=== PATIENT | male | born 1990 | race Caucasian/White ===

== ENCOUNTER 2017-01-13 17:45 | Emergency (ER) | payer OTHER ==
[~2017-01-13] VITALS: Ht 177.8 cm; Wt 98.0 kg
[2017-01-13 17:46] VITALS: BP 133/65
[2017-01-13] MEDS ORDERED: ROBA500T PO (18:15)
[2017-01-13] MEDS ORDERED: IBUP80TA PO (18:15)
[2017-01-13] MEDS ORDERED: IBUPROFEN 800 MG TAB PO ONE (18:15)
[2017-01-13] MEDS ORDERED: METHOCARBAMOL 500 MG TAB PO ONE (18:15)
== END 2017-01-13 18:41 | disposition home or self-care (01) ==
LOC: M ED 18:31
DX: S29.012A Strain of muscle and tendon of back wall of thorax, initial encounter (principal); G56.02 Carpal tunnel syndrome, left upper limb; X58.XXXA Exposure to other specified factors, initial encounter; Y92.89 Other specified places as the place of occurrence of the external cause; Y93.89 Activity, other specified; Y99.8 Other external cause status; F17.210 Nicotine dependence, cigarettes, uncomplicated